=== PATIENT | male | born 1990 | race Two or more races ===

== ENCOUNTER 2016-08-05 10:46 | Emergency (ER) | payer SELFPAY ==
[~2016-08-05] VITALS: Ht 177.8 cm; Wt 93.9 kg
[2016-08-05 11:42] LABS: Basophils # (auto) 0.1 uL; Basophils % (auto) 1.4 % (0.0-2.0); Eosinophils # (auto) 0.3 uL; Hematocrit 47.7 % (41.0-53.0); Hemoglobin 15.9 g/dL (13.5-17.5); Lymphocytes # (auto) 2.4 uL; Lymphocytes % (auto) 37.6 % (10.0-50.0); Mean Corpuscular Hgb Conc. 33.4 g/dL (32.0-36.0); Mean Corpuscular Volume 86.8 fL (80.0-100.0); Mean Platelet Volume 9.3 fL (7.4-10.4); Monocytes # (auto) 0.5 uL; Monocytes % (auto) 8.1 % (0.0-12.0); Neutrophils % (auto) 47.9 % (37.0-80.0); Platelet Count (auto) 225 10^3/uL (140-450); Red Cell Distribution Width 13.6 % (11.6-16.0); White Blood Cell 6.3 10^3/uL (4.4-10.8)
[2016-08-05 11:54] LABS: INR 1.01 (0.9-1.15); Partial Thromboplastin Time 26.2 sec (22.64-33.71); Prothrombin Time 10.9 sec (9.37-12.3)
[2016-08-05 11:56] LABS: Urine Bilirubin Negative (Negative); Urine Blood Negative /uL (Negative); Urine Color Yellow (Yellow); Urine Glucose Normal (Normal); Urine Ketone Negative (Negative); Urine Nitrite Negative (Negative); Urine RBC <1 /hpf (0 - 3); Urine Urobilinogen Normal (Negative)
[2016-08-05 12:05] VITALS: BP 138/85
[2016-08-05 12:08] LABS: Albumin 4.2 g/dL (3.4-5.0); Alkaline Phosphatase 72 U/L (45-117); Anion Gap 11 (5-15); Aspartate Aminotransferase 31 U/L (15-37); BUN/Creatinine Ratio 13.5; Bilirubin, Total 0.4 mg/dL (0.2-1.0); Blood Urea Nitrogen 10 mg/dL (7-18); Calcium 9.2 mg/dL (8.5-10.1); Carbon Dioxide 28 mmol/L (21-32); Chloride 102 mmol/L (98-107); GFR African American 163 mL/min; GFR Non-African American 135 mL/min; Glucose 99 mg/dL (74-106); Magnesium 2.6 mg/dL (1.6-2.6); Potassium 4.1 mmol/L (3.5-5.1); Sodium 141 mmol/L (136-145); Total Protein 8.6 g/dL (6.4-8.2)
== END 2016-08-05 13:37 | disposition home or self-care (01) ==
LOC: ER 10:56
DX: J20.9 Acute bronchitis, unspecified (principal)
CPT/HCPCS: 36415; 71020; 80053; 81001; 83735; 84484; 85025; 85610; 85730; 94761; 99285; G0434

== ENCOUNTER 2016-08-07 20:56 | Emergency (ER) | payer SELFPAY ==
[~2016-08-07] VITALS: Ht 177.8 cm; Wt 93.9 kg
[2016-08-07 22:02] LABS: Basophils # (auto) 0.1 uL; Basophils % (auto) 0.7 % (0.0-2.0); Eosinophils # (auto) 0.4 uL; Eosinophils % (auto) 5.1 % (0.0-7.0); Hematocrit 45.6 % (41.0-53.0); Hemoglobin 15.5 g/dL (13.5-17.5); Lymphocytes # (auto) 2.7 uL; Lymphocytes % (auto) 35.9 % (10.0-50.0); Mean Corpuscular Hemoglobin 29.1 pg (28.0-32.0); Mean Corpuscular Volume 85.6 fL (80.0-100.0); Mean Platelet Volume 9.5 fL (7.4-10.4); Monocytes # (auto) 0.4 uL; Monocytes % (auto) 5.8 % (0.0-12.0); Neutrophils % (auto) 52.5 % (37.0-80.0); Platelet Count (auto) 236 10^3/uL (140-450); Red Cell Distribution Width 13.5 % (11.6-16.0); White Blood Cell 7.6 10^3/uL (4.4-10.8)
[2016-08-07 22:24] LABS: Partial Thromboplastin Time 25.6 sec (22.64-33.71); Prothrombin Time 10.8 sec (9.37-12.3)
[2016-08-07 22:43] LABS: Albumin 3.9 g/dL (3.4-5.0); Alkaline Phosphatase 81 U/L (45-117); Anion Gap 14 (5-15); Aspartate Aminotransferase 57 U/L (15-37); BUN/Creatinine Ratio 18.9; Bilirubin, Total 0.4 mg/dL (0.2-1.0); Blood Urea Nitrogen 18 mg/dL (7-18); Calcium 9.1 mg/dL (8.5-10.1); Carbon Dioxide 24 mmol/L (21-32); Chloride 104 mmol/L (98-107); GFR African American 122 mL/min; GFR Non-African American 101 mL/min; Glucose 117 mg/dL (74-106); Potassium 3.4 mmol/L (3.5-5.1); Sodium 142 mmol/L (136-145); Total Protein 8.2 g/dL (6.4-8.2)
[2016-08-08] MEDS ORDERED: cefTRIAXone W LIDOCAINE 1 GM IM IM ONE (03:30)
[2016-08-08 06:13] VITALS: BP 118/72
== END 2016-08-08 06:11 | disposition home or self-care (01) ==
LOC: ER 20:56
DX: J20.9 Acute bronchitis, unspecified (principal); F17.210 Nicotine dependence, cigarettes, uncomplicated
CPT/HCPCS: 36415; 71010; 80053; 84484; 85025; 85610; 85730; 93005; 96372; J0696

== ENCOUNTER 2016-08-20 18:35 | Emergency (ER) | payer SELFPAY ==
[~2016-08-20] VITALS: Ht 177.8 cm; Wt 93.9 kg
[2016-08-20 23:52] VITALS: BP 164/109
== END 2016-08-21 02:23 | disposition home or self-care (01) ==
LOC: ER 18:46
DX: J20.9 Acute bronchitis, unspecified (principal)
CPT/HCPCS: 36600; 71020; 82805

== ENCOUNTER 2016-10-21 11:34 | Emergency (ER) | payer MEDICAID ==
[~2016-10-21] VITALS: Ht 177.8 cm; Wt 93.0 kg
[2016-10-21 11:48] VITALS: BP 136/91
[2016-10-21] MEDS ORDERED: IPRATROPIUM BROM 0.5 MG/2.5ML INH SOL NEB ONE (12:45)
[2016-10-21] MEDS ORDERED: ALBUTEROL SULF 2.5 MG/0.5ML(0.5%) NEB SOLN NEB ONE (12:45)
== END 2016-10-21 13:08 | disposition home or self-care (01) ==
LOC: ER 11:45
DX: J01.90 Acute sinusitis, unspecified (principal); J98.01 Acute bronchospasm
CPT/HCPCS: 94640

== ENCOUNTER 2018-02-02 13:59 | Emergency (ER) | payer MEDICAID ==
[~2018-02-02] VITALS: Ht 177.8 cm; Wt 95.3 kg
[2018-02-02 15:23] LABS: Basophils # (auto) 0.1 uL; Eosinophils # (auto) 0.4 uL; Eosinophils % (auto) 5.6 % (0.0-7.0); Hematocrit 46.3 % (41.0-53.0); Hemoglobin 16.2 g/dL (13.5-17.5); Lymphocytes # (auto) 2.3 uL; Mean Corpuscular Hemoglobin 30.6 pg (28.0-32.0); Mean Corpuscular Hgb Conc. 34.9 g/dL (32.0-36.0); Mean Corpuscular Volume 87.7 fL (80.0-100.0); Monocytes # (auto) 0.5 uL; Monocytes % (auto) 8.3 % (0.0-12.0); Neutrophils # (auto) 3.3 uL; Neutrophils % (auto) 50.1 % (37.0-80.0); Nucleated Red Blood Cells % 0.1 %; Platelet Count (auto) 252 10^3/uL (140-450); Red Blood Cells 5.28 10^6/uL (4.5-5.90); Red Cell Distribution Width 13.6 % (11.8-14.3); White Blood Cell 6.6 10^3/uL (4.4-10.8)
[2018-02-02 15:29] LABS: Urine Bacteria NONE SEEN /hpf (None Seen); Urine Blood Negative /uL (Negative); Urine Mucus FEW (None Seen); Urine Specific Gravity 1.029 (1.001-1.035); Urine WBC 1 /hpf (0 - 3)
[2018-02-02 16:06] LABS: Potassium 3.5 mmol/L (3.5-5.1)
[2018-02-02 16:09] LABS: Albumin 4.4 g/dL (3.4-5.0); BUN/Creatinine Ratio 13.5
[2018-02-02 16:12] LABS: Bilirubin, Total 0.6 mg/dL (0.2-1.0); Total Protein 8.8 g/dL (6.4-8.2)
[2018-02-02] MEDS ORDERED: IOHEXOL 300 MG/ML 100ML BOTTLE IJ ONE (17:10)
[2018-02-02 19:31] VITALS: BP 134/75
[2018-02-02] MEDS ORDERED: cefTRIAXone 1GM/10ml IVPUSH 10 ML IV ONE (21:00)
[2018-02-02] MEDS ORDERED: metroNIDAZOLE 500 MG TAB PO ONE (21:15)
== END 2018-02-02 20:59 | disposition home or self-care (01) ==
LOC: ER 13:59
DX: R10.9 Unspecified abdominal pain (principal); I10 Essential (primary) hypertension; Z90.49 Acquired absence of other specified parts of digestive tract; Z88.0 Allergy status to penicillin; Z88.1 Allergy status to other antibiotic agents
CPT/HCPCS: 36415; 74177; 80053; 81001; 83690; 85025; 96374; 99285; J0696; Q9967

== ENCOUNTER 2022-03-21 19:26 | Emergency (ER) | payer MEDICAID ==
[~2022-03-21] VITALS: Ht 177.8 cm; Wt 105.0 kg
[2022-03-21 19:26] VITALS: BP 141/81
[2022-03-21] MEDS ORDERED: ACETAMINOPHEN 325 MG TAB PO ONE (20:45)
[2022-03-21] MEDS ORDERED: SODIUM CHLORIDE 0.9% 1,000 ML IV ONE (20:45)
[2022-03-21] MEDS ORDERED: ONDANSETRON ODT 4 MG TAB PO ONE (21:00)
[2022-03-21 21:02] LABS: Urine Specific Gravity 1.005 (1.001-1.035)
[2022-03-21 21:03] LABS: Urine Blood Negative /uL (Negative)
[2022-03-21 21:28] LABS: Basophils # (auto) 0.1 10 ^3/uL (0-0.2); Eosinophils # (auto) 0.1 10 ^3/uL (0-0.8); Eosinophils % (auto) 1.1 % (0.0-7.0); Hematocrit 44.5 % (41.0-53.0); Hemoglobin 15.1 g/dL (13.5-17.5); Lymphocytes # (auto) 0.3 10 ^3/uL (0.4-5.4); Lymphocytes % (auto) 5.6 % (10.0-50.0); Mean Corpuscular Hemoglobin 29.7 pg (28.0-32.0); Mean Corpuscular Hgb Conc. 33.9 g/dL (32.0-36.0); Mean Corpuscular Volume 87.5 fL (80.0-100.0); Monocytes # (auto) 0.5 10 ^3/uL (0-1.3); Monocytes % (auto) 8.2 % (0.0-12.0); Neutrophils # (auto) 5.1 10 ^3/uL (1.6-8.6); Neutrophils % (auto) 84.1 % (37.0-80.0); Red Blood Cells 5.09 10^6/uL (4.5-5.90)
[2022-03-21 21:45] LABS: Albumin 4.1 g/dL (3.4-5.0); BUN/Creatinine Ratio 14.7; Calcium 9.4 mg/dL (8.5-10.1)
[2022-03-21 21:48] LABS: Bilirubin, Total 0.5 mg/dL (0.2-1.0); Total Protein 8.1 g/dL (6.4-8.2)
[2022-03-21 22:32] LABS: Potassium 2.9 mmol/L (3.5-5.1)
[2022-03-21] MEDS ORDERED: POTASSIUM EFFERVESENT TAB 25 MEQ PO ONE (22:45)
[2022-03-21] MEDS ORDERED: ACET-1158 PO (22:55)
[2022-03-21] MEDS ORDERED: ONDA-144 PO (22:55)
== END 2022-03-21 23:05 | disposition home or self-care (01) ==
LOC: ER 19:27
DX: U07.1 COVID-19 (principal); K52.9 Noninfective gastroenteritis and colitis, unspecified
CPT/HCPCS: 36415; 74176; 80053; 81003; 83605; 83690; 85025; 87040; 87426; 87804; 96360; 96361; 99284; J7030; Q0162